=== PATIENT | male | born 1975 | race Hispanic/Latino ===

== ENCOUNTER 2018-02-10 02:30 | Emergency (ER) | payer OTHER ==
[~2018-02-10] VITALS: Ht 175.3 cm; Wt 120.7 kg
[2018-02-10] MEDS ORDERED: CIPROFLOXACIN H10 ML BOTH EYES (03:09)
[2018-02-10] MEDS ORDERED: AUGMENTIN875 MG PO (03:09)
[2018-02-10 03:34] VITALS: BP 144/81
== END 2018-02-10 03:38 ==
LOC: EME 02:30 → EDBD 02:30 → EME 02:30
DX: S61.252A Open bite of right middle finger without damage to nail, initial encounter (principal); H10.33 Unspecified acute conjunctivitis, bilateral; Y04.1XXA Assault by human bite, initial encounter; F17.200 Nicotine dependence, unspecified, uncomplicated
CPT/HCPCS: 99281; 99284